=== PATIENT | female | born 1950 | race Hispanic/Latino ===

== ENCOUNTER 2016-07-18 23:04 | Emergency (ER) | payer OTHER ==
[2016-07-18 23:56] VITALS: BP 148/72; PULSE 88; RESP 18; TEMP 98; O2SAT 97; BMI 24.5
--- NOTE | 2016-08-02 11:51 | RAD ---
PROCEDURE: Left Knee Radiographs. HISTORY: Pain. COMPARISON: None. FINDINGS: BONES: Normal. No fracture. JOINTS: Normal. No osteoarthritis. JOINT EFFUSION: None. OTHER FINDINGS: None. IMPRESSION: Normal radiographs of the left knee.
== END 2016-07-18 23:56 | disposition left against medical advice (07) ==
LOC: ED 23:04
DX: Z02.89 Encounter for other administrative examinations (principal); M25.569 Pain in unspecified knee

== ENCOUNTER 2016-10-15 17:51 | Emergency (ER) | payer OTHER ==
[2016-10-15 18:09] VITALS: PULSE 79; RESP 16; TEMP 98.1; BMI 25.0
[2016-10-15 18:20] VITALS: BP 114/70
--- NOTE | 2016-10-15 19:02 | ED PDOC ---
Arrival/HPI - General Chief Complaint: Eye Problem Time Seen by Provider: 10/15/16 18:43 Historian: Patient - History of Present Illness Narrative History of Present Illness (Text): 10/15/16 18:58 66-year-old female presents today with left eye pain status post injury. Patient states this morning she was walking in a tree branch hit her in the left eye. Patient states she continued her day and went to work. She presents today with a burning sensation and tearing in the left eye. She denies blurred vision. Denies headache dizziness or weakness. Unsure of her last tetanus shot. No other complaints Symptom Onset: Sudden Symptom Course: Unchanged Quality: Burning Severity Level: 4 Past Medical History - Provider Review Nursing Documentation Reviewed: Yes - Travel History Have you recently traveled outside [place] w/in the past 3 mons?: No - Infectious Disease Hx of Infectious Diseases: None - Tetanus Immunization Tetanus Immunization: Unknown - Reproductive Menopause: Yes - Cardiac Hx Hypertension: Yes - Pulmonary Hx Respiratory Disorders: No - Neurological Hx Neurological Disorder: No - HEENT Hx HEENT Disorder: No - Renal Hx Renal Disorder: No - Endocrine/Metabolic Hx Endocrine Disorders: No - Hematological/Oncological Hx Blood Disorders: No - Integumentary Hx Dermatological Disorder: No - Musculoskeletal/Rheumatological Hx Musculoskeletal Disorders: No - Gastrointestinal Hx Gastrointestinal Disorders: No - Genitourinary/Gynecological Hx Genitourinary Disorders: No - Psychiatric Hx Psychophysiologic Disorder: No Hx Anxiety: No Hx Bipolar Disorder: No Hx Depression: No Hx Emotional Abuse: No Hx Hallucinations: No Hx Panic Disorder: No Hx Post Traumatic Stress Disorder: No Hx Psychosis: No Hx Physical Abuse: No Hx Schizophrenia: No Hx Sexual Abuse: No Hx Substance Use: No - Surgical History Hx Section: Yes - Anesthesia Hx Anesthesia: Yes Hx Anesthesia Reactions: No Hx Malignant Hyperthermia: No - Suicidal Assessment Feels Threatened In Home Enviroment: No Family/Social History - Physician Review Nursing Documentation Reviewed: Yes Family/Social History: Unknown Family HX Smoking Status: Former Smoker Hx Alcohol Use: No Hx Substance Use: No Hx Substance Use Treatment: No Allergies/Home Meds Allergies/Adverse Reactions: Allergies No Known Allergies Allergy (Verified 10/15/16 18:09) Home Medications: Home Meds Medication Instructions Recorded Confirmed Atorvastatin [Lipitor] 10 mg PO DAILY 02/01/13 10/15/16 Review of Systems - Review of Systems Constitutional: absent: Fatigue, Fevers Eyes: Photophobia, Other (watery left eye, burning pain). absent: Vision Changes, Eye Pain Respiratory: absent: SOB, Cough Cardiovascular: absent: Chest Pain, Palpitations Gastrointestinal: absent: Abdominal Pain, Vomiting Genitourinary Female: absent: Dysuria Musculoskeletal: absent: Arthralgias Skin: absent: Rash Neurological: absent: Headache, Dizziness Psychiatric: absent: Anxiety, Depression Physical Exam Vital Signs Reviewed: Yes Vital Signs Temp Pulse Resp BP Pulse Ox 10/15/16 19:52 16 98 10/15/16 18:09 98.1 F 79 16 100 10/15/16 18:08 98.1 F 79 16 114/70 100 Temperature: Afebrile Blood Pressure: Normal Pulse: Regular Respiratory Rate: Normal Appearance: Positive for: Well-Appearing, Non-Toxic, Comfortable Pain Distress: None Mental Status: Positive for: Alert and Oriented X 3 - Systems Exam Head: Present: Atraumatic. No: Swelling Pupils: Present: PERRL Extroacular Muscles: Present: EOMI Conjunctiva: Present: Injected (left conjunctival injection, ), Other (left corneal abrasion noted mid-inferior aspect of cornea; ) Ears: Present: Normal Mouth: Present: Moist Mucous Membranes Neck: Present: Normal Range of Motion Respiratory/Chest: Present: Clear to Auscultation, Good Air Exchange. No: Respiratory Distress, Accessory Muscle Use Cardiovascular: Present: Regular Rate and Rhythm Skin: Present: Warm, Dry Psychiatric: Present: Alert Medical Decision Making ED Course and Treatment: 10/15/16 19:05 Patient is nontoxic well appearing in no distress Visual acuity within normal limits left Conjunctival injection noted, PERRLA, extraocular muscles intact, + corneal abrasion noted to left eye. tobramycin eye drops given. advised f/u with the eye doctor within the next 2 days. advised immediate return if symptoms worsen,persist or if new symptoms develop. Patient verbalizes understanding of discharge instructions and need for immediate followup. Impression: corneal abrasion Tobrex: 2 drops in the affected eye 4 times daily Followup with the eye doctor within the next 2 days Return immediately if symptoms worsen persist or if new symptoms develop; blurry vision, worsening eye pain, worsening redness or any other concerning symptoms develop. Follow up with her primary care physician within the next 2 days 10/15/16 22:19 - Medication Orders Current Medication Orders: Discontinued Medications Tetanus/Reduced Diphtheria/Acell Pertussis (Boostrix Vaccine Inj) 0.5 ml IM .ONCE ONE Stop: 10/15/16 19:15 Last Admin: 10/15/16 19:27 Dose: 0.5 ml Tobramycin Sulfate (Tobrex 0.3% Ophth Soln) 2 drop OS STAT STA Stop: 10/15/16 19:15 Last Admin: 10/15/16 19:28 Dose: 2 drp Disposition/Present on Arrival - Present on Arrival Any Indicators Present on Arrival: No History of DVT/PE: No History of Uncontrolled Diabetes: No Urinary Catheter: No History of Decub. Ulcer: No History Surgical Site Infection Following: None - Disposition Have Diagnosis and Disposition been Completed?: Yes Diagnosis: Corneal abrasion Disposition: HOME/ ROUTINE Disposition Time: 19:17 Patient Plan: Discharge Condition: GOOD Discharge Instructions (ExitCare): Corneal Abrasion (ED) Additional Instructions: Tobrex: 2 drops in the affected eye every 4 hours x 7 days Followup with the eye doctor within the next 2 days Return immediately if symptoms worsen persist or if new symptoms develop; blurry vision, worsening eye pain, worsening redness or any other concerning symptoms develop. Follow up with the primary care physician within the next 2 days Prescriptions: Tobramycin 0.3% [Tobramycin 5 Ml] 2 drop OS Q4 #1 bottle Referrals: Patsy Schroeder MD [Primary Care Provider] - Follow up with primary Jimmy Iraheta MD [Staff Provider] - Follow up with primary Forms: [employer] (Greek)
[2016-10-15] MEDS ORDERED: Tobramycin 0.3% OPHT SOLN OS STA (19:14)
[2016-10-15] MEDS ORDERED: TDAP Vaccine 0.5 mL Syr IM ONE (19:14)
[2016-10-15 19:53] VITALS: O2SAT 98
== END 2016-10-15 19:53 | disposition home or self-care (01) ==
LOC: ED 17:51
DX: S05.02XA Injury of conjunctiva and corneal abrasion without foreign body, left eye, initial encounter (principal); W22.8XXA Striking against or struck by other objects, initial encounter; Y93.01 Activity, walking, marching and hiking; Y92.89 Other specified places as the place of occurrence of the external cause; Z23 Encounter for immunization